=== PATIENT | male | born 1985 | race Asian ===

== ENCOUNTER 2016-08-23 17:50 | Emergency (ER) | payer OTHER ==
[~2016-08-23] VITALS: Ht 188 cm; Wt 88.5 kg
[2016-08-23 18:54] LABS: PLATELET COUNT 530 K/uL (142-355)
[2016-08-23 19:16] LABS: POTASSIUM 3.8 mmol/L (3.6-5.2); SODIUM 137 mmol/L (136-145)
== END 2016-08-23 20:09 | disposition home or self-care (01) ==
LOC: ED 17:50
DX: J02.0 Streptococcal pharyngitis (principal)
CPT/HCPCS: 36415; 80053; 85027; 87804; 87880; 99283

== ENCOUNTER 2017-08-15 16:54 | Emergency (ER) | payer OTHER ==
[~2017-08-15] VITALS: Ht 190.5 cm; Wt 88.5 kg
[2017-08-15 17:39] LABS: PLATELET COUNT 409 K/uL (142-355)
[2017-08-15 17:44] LABS: POTASSIUM 3.1 mmol/L (3.6-5.2)
== END 2017-08-15 18:36 | disposition home or self-care (01) ==
LOC: ED 16:54
DX: J11.1 Influenza due to unidentified influenza virus with other respiratory manifestations (principal); J02.0 Streptococcal pharyngitis
CPT/HCPCS: 36415; 80053; 85027; 87804; 87880; 99283